=== PATIENT | male | born 2000 | race Caucasian/White ===

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

== ENCOUNTER 2024-06-19 01:47 | Emergency (ER) | payer MEDICAID, SELFPAY ==
[2020-06-12 15:16] VITALS: BP 144/76; BMI 31.1
[2024-06-19 01:59] VITALS: BP 142/83; PULSE 96; RESP 18; TEMP 36.6; O2SAT 100; BMI 38.3
== END 2024-06-19 04:14 | disposition left against medical advice (07) ==
LOC: ER 01:51
PROVIDERS: Emergency Provider Family Medicine; PCP Family Medicine
DX: Z53.21 Procedure and treatment not carried out due to patient leaving prior to being seen by health care provider (principal)